=== PATIENT | female | born 1960 ===

== ENCOUNTER → 2018-05-05 | Outpatient (CLI) | payer OTHER ==
[~2018-05-05] MED LIST: ACET-1693 PO; BISA-16 PO; CALC500C3 PO; CRG125 PO; DIPH25CA37 PO; DIPH25CA5 PO; DULO60CA44 PO; ERGO1CAP35 PO; HYDR12.55 PO; LAMISIL 1% TOP; MELA5CAP PO; OXYC10SO PO; SYN137 PO
== END | disposition home or self-care (01) ==
LOC: C.LAB1850 08:23
PROVIDERS: ATTEND Internal Medicine Endocrinology, Diabetes & Metabolism
DX: E03.9 Hypothyroidism, unspecified (principal)